=== PATIENT | female | born 1960 | race Asian ===

== ENCOUNTER → 2023-09-06 19:15 | Outpatient (REF) | payer BC, SELFPAY | LOC: WDC 19:15 | PROVIDERS: ATTENDING PHYSICIAN Internal Medicine Geriatric Medicine | DX: Z12.31 Encounter for screening mammogram for malignant neoplasm of breast (principal); Z12.39 Encounter for other screening for malignant neoplasm of breast | CPT/HCPCS: 77063; 77067 ==

== ENCOUNTER → 2025-04-23 18:55 | Outpatient (REF) | payer BC, SELFPAY | LOC: WDC 18:55 | PROVIDERS: FAMILY PHYSICIAN Internal Medicine Geriatric Medicine | DX: Z12.31 Encounter for screening mammogram for malignant neoplasm of breast (principal) | CPT/HCPCS: 77063; 77067 ==